=== PATIENT | male | born 1985 | race Caucasian/White ===

== ENCOUNTER 2017-08-11 15:12 | Emergency (ER) | payer BC ==
[2017-08-11] MEDS: IBUPROFEN 600 MG TAB PO (17:07)
== END 2017-08-11 18:08 | disposition home or self-care (01) ==
LOC: FTE 15:12
DX: S99.921A Unspecified injury of right foot, initial encounter (principal); W22.8XXA Striking against or struck by other objects, initial encounter; Y92.9 Unspecified place or not applicable; Z87.891 Personal history of nicotine dependence
CPT/HCPCS: 73630; 82962; 99283-25

== ENCOUNTER 2017-12-07 16:24 | Emergency (ER) | payer BC | END 2017-12-07 19:00 | disposition home or self-care (01) | LOC: FTE 16:24 | DX: S63.617A Unspecified sprain of left little finger, initial encounter (principal); W18.39XA Other fall on same level, initial encounter; Y92.9 Unspecified place or not applicable | CPT/HCPCS: 29130; 73140; 99283-25 ==